=== PATIENT | female | born 1945 ===

== ENCOUNTER → 2017-07-18 | Outpatient (CLI) | payer MEDICARE, OTHER ==
[~2017-07-18] MED LIST: AMLO10TA2 PO; AMLO5TAB2 PO; ASPI-515 PO; CIPR500T3 PO; LOSA25TA5 PO; LOSA50TA6 PO; METO50TA82 PO; METR500T PO; ONDA4TAB7 PO; POLY17PO5 PO
== END | disposition home or self-care (01) ==
LOC: CFH 13:48
PROVIDERS: ATTEND Internal Medicine Cardiovascular Disease
DX: I07.1 Rheumatic tricuspid insufficiency (principal); I10 Essential (primary) hypertension; E78.5 Hyperlipidemia, unspecified
CPT/HCPCS: 93306

== ENCOUNTER → 2017-07-26 | Outpatient (CLI) | payer MEDICARE, OTHER ==
[~2017-07-26] MED LIST changes: +REGADENOSON 0.4 MG/5 ML SYRINGE ONE
== END | disposition home or self-care (01) ==
LOC: CFH 07:11
PROVIDERS: ATTEND Internal Medicine Cardiovascular Disease
DX: I10 Essential (primary) hypertension (principal); R07.89 Other chest pain
CPT/HCPCS: 78452; 93017; A9502; J2785

== ENCOUNTER 2017-12-13 05:03 | Emergency (ER) | payer MEDICARE, OTHER ==
[~2017-12-13] VITALS: Ht 154.9 cm; Wt 75.0 kg
[~2017-12-13 05:03] MED LIST changes: -REGADENOSON 0.4 MG/5 ML SYRINGE ONE
[2017-12-13 05:08] VITALS: BP 152/69
[2017-12-13] MEDS ORDERED: ALBUTEROL/IPRATROPIUM 2.5MG/0.5MG, 3 ML NPPB ONE ×2 (05:30→06:00)
[2017-12-13] MEDS ORDERED: ALBUTEROL SULFATE 2.5 MG/3 ML NPPB ONE (06:15)
[2017-12-13] MEDS ORDERED: ALBUTEROL SULFATE 2.5 MG/3 ML ONE (06:16)
== END 2017-12-13 06:48 | disposition home or self-care (01) ==
LOC: ED 06:15
DX: J44.1 Chronic obstructive pulmonary disease with (acute) exacerbation (principal); I10 Essential (primary) hypertension; E11.9 Type 2 diabetes mellitus without complications
CPT/HCPCS: 71045; 93005; 94640; 99284; J7512; J7613; J7620

== ENCOUNTER 2017-12-23 16:08 | Emergency (ER) | payer MEDICARE, OTHER ==
[~2017-12-23] VITALS: Ht 154.9 cm; Wt 75.0 kg
[2017-12-23 16:45] LABS: BASOPHILS # (AUTO) 0.12 x10^3/uL (0-0.1); BASOPHILS % (AUTO) 1 % (0-1); EOSINOPHILS # (AUTO) 0.93 x10^3/uL (0-0.4); EOSINOPHILS % (AUTO) 9 % (1-7); LYMPHOCYTES # (AUTO) 2.45 x10^3/uL (1-3.4); LYMPHOCYTES % (AUTO) 25 % (22-44); MD NO; MEAN CORPUSCULAR HEMOGLOBIN 28.3 pg (27.0-34.8); MEAN CORPUSCULAR HGB CONC 33.6 g/dL (32.4-35.8); MEAN CORPUSCULAR VOLUME 84.3 fL (80-100); MEAN PLATELET VOLUME 8.5 fL (7.4-10.4); MONOCYTES # (AUTO) 0.58 x10^3/uL (0.2-0.8); MONOCYTES % (AUTO) 6 % (2-9); NEUTROPHILS % (AUTO) 59 % (42-75); PLATELET COUNT 270 x10^3/uL (130-400); RED BLOOD COUNT 5.31 x10^6/uL (3.82-5.3); RED CELL DISTRIBUTION WIDTH 15.8 % (9.6-15.2)
[2017-12-23 16:54] LABS: ALANINE AMINOTRANSFERASE 22 U/L (12-78); ANION GAP 9 mmol/L (5-15); CALCIUM 9.3 mg/dL (8.5-10.1); CHLORIDE 108 mmol/L (98-107); CREATININE 1.05 mg/dL (0.55-1.02)
[2017-12-23 16:57] LABS: ALKALINE PHOSPHATASE 111 U/L (45-117); BILIRUBIN,TOTAL 0.5 mg/dL (0.2-1.0); TOTAL PROTEIN 7.7 g/dL (6.4-8.2)
[2017-12-23] MEDS ORDERED: methylPREDNISolone SOD SUCC 125 MG/2 ML IVP ONE (17:00)
[2017-12-23] MEDS ORDERED: methylPREDNISolone SOD SUCC 125 MG/2 ML ONE (17:17)
[2017-12-23] MEDS ORDERED: OMNIPAQUE 350 MG/ML, 100ML BOTTLE ONE (17:55)
[2017-12-23 18:03] VITALS: BP 135/40
[2017-12-23] MEDS ORDERED: APAP/CODEINE 24/2.4MG/ML ELIXIR PO ONE (18:30)
== END 2017-12-23 18:44 | disposition home or self-care (01) ==
LOC: ED 18:35
DX: J44.1 Chronic obstructive pulmonary disease with (acute) exacerbation (principal); I10 Essential (primary) hypertension; Z87.891 Personal history of nicotine dependence
CPT/HCPCS: 36415; 71045; 71275; 80053; 85025; 93005; 96374; 99285; J2930; Q9967

== ENCOUNTER → 2019-06-26 | Outpatient (CLI) | payer MEDICARE, OTHER ==
[~2019-06-26] MED LIST changes: +AMLO-150 PO; -AMLO10TA2 PO; +AMLO10TA8 PO; -AMLO5TAB2 PO; +LOSA25TA25 PO; -LOSA25TA5 PO; +LOSA50TA14 PO; -LOSA50TA6 PO
== END | disposition home or self-care (01) ==
LOC: CFH 13:44
PROVIDERS: ATTEND Family Medicine
DX: Z12.31 Encounter for screening mammogram for malignant neoplasm of breast (principal); N64.89 Other specified disorders of breast; N95.8 Other specified menopausal and perimenopausal disorders
CPT/HCPCS: 77063; 77067

== ENCOUNTER → 2020-08-02 | Outpatient (CLI) | payer MEDICARE, OTHER ==
[~2020-08-02] MED LIST changes: +AMLO-211 PO; -AMLO10TA8 PO; -ASPI-515 PO; +ASPI-963 PO; -CIPR500T3 PO; +CIPR500T4 PO
== END | disposition home or self-care (01) ==
LOC: CFH 11:50
PROVIDERS: ATTEND Internal Medicine
DX: N64.9 Disorder of breast, unspecified (principal)
CPT/HCPCS: 76642; 77062; 77066; G0279